=== PATIENT | male | born 1955 | race Caucasian/White ===

== ENCOUNTER 2017-07-24 08:05 | Inpatient (IN) | payer OTHER ==
[~2017-07-24] VITALS: Ht 177.8 cm; Wt 90.5 kg
[2017-07-24] VITALS (7 sets, daily range): BP systolic 91–153; BP diastolic 56–76; PULSE 59–83; RESP 15–23; TEMP 97.8–98.6; O2SAT 95–99
[2017-07-24] MEDS ORDERED: LOVA20TA PO (08:20)
[2017-07-24] MEDS ORDERED: CYCL10TA PO (08:20)
[2017-07-24] MEDS ORDERED: SODIUM CHLORID 0.9% 500 ML INJ 500 ML IV ONE (08:30)
[2017-07-24] MEDS ORDERED: ASPIRIN 81 MG CHEW TAB PO ONE (08:30)
[2017-07-24] MEDS ORDERED: SODIUM CHLORIDE 0.9% FLUSH 10 ML FLUSH IVF PRN (08:30)
--- NOTE | 2017-07-24 08:32 | PD ---
HPI Chief Complaint: Chest Pain Time Seen by Provider: 08:22 Travel History International Travel<30 days: No Contact w/Intl Traveler<30days: No Traveled to known affect area: No History of Present Illness HPI This 62-year-old man who presents to the emergency department complaining of pain in his neck and back shoulder radiating into his chest. He states the he started getting pain in his neck and shoulder WORK TODAY. HE WENT HOME AND THEN HAD TIGHTNESS IN HIS BACK TO RADIATE THROUGH HIS CHEST AND THROUGHOUT HIS ENTIRE TORSO. DENIES A HISTORY OF PREVIOUS SIMILAR SYMPTOMS. HE SEES A CHIROPRACTOR WEEKLY AND STATES THAT HE HAD AN ADJUSTMENT YESTERDAY. NO CHANGE IN HIS ROUTINE. NO NEW HEAVY LIFTING. HE TAKES FLEXERIL AT NIGHT FOR HIS BACK. HE ALSO HAS A HISTORY OF ULCERATIVE COLITIS, DOES NOT TAKE ANY MEDICINES FOR THAT. HE DOES TAKE MEDICINE FOR HYPERLIPIDEMIA. NO HISTORY OF HEART DISEASE. THE TIGHTNESS IN HIS CHEST IS MOSTLY RESOLVED AND HE STILL JUST HAS A LITTLE TIGHTNESS IN HIS BACK. NO AGGRAVATING OR ALLEVIATING FACTORS. NO OTHER ASSOCIATED SYMPTOMS. History Past Medical History Narrative Medical Ulcerative colitis Hyperlipidemia Chronic back problems Family History Narrative Family History No family history of heart disease Social History Tobacco Use: No Allergies-Medications (Allergen,Severity, Reaction): Coded Allergies: No Known Drug Allergies (Verified Allergy, Unknown, 07/24/17) Reported Meds & Prescriptions Reported Meds & Active Scripts Active Reported Lovastatin 20 Mg Tab 20 Mg PO HS Flexeril (Cyclobenzaprine HCl) 10 Mg Tab 10 Mg PO HS Review of Systems Except as stated in HPI: all other systems reviewed are Neg Physical Exam Narrative GENERAL: Well-appearing 62-year-old man, no acute distress. SKIN: Focused skin assessment warm/dry. HEAD: Atraumatic. Normocephalic. EYES: Pupils equal and round. No scleral icterus. No injection or drainage. ENT: No nasal bleeding or discharge. Mucous membranes pink and moist. NECK: Trachea midline. No JVD. CARDIOVASCULAR: Regular rate and rhythm. No murmur appreciated. RESPIRATORY: No accessory muscle use. Clear to auscultation. Breath sounds equal bilaterally. GASTROINTESTINAL: Abdomen soft, non-tender, nondistended. Hepatic and splenic margins not palpable. MUSCULOSKELETAL: No obvious deformities. No clubbing. No cyanosis. No edema. NEUROLOGICAL: Awake and alert. No obvious cranial nerve deficits. Motor grossly within normal limits. Normal speech. PSYCHIATRIC: Appropriate mood and affect; insight and judgment normal. Data Data Last Documented VS Vital Signs Date Time Temp Pulse Resp B/P (MAP) Pulse Ox O2 Delivery O2 Flow Rate FiO2 07/24/17 10:48 73 21 107/65 (79) 99 Room Air 07/24/17 08:18 97.8 Orders Orders Electrocardiogram (07/24/17 08:22) Complete Blood Count With Diff (07/24/17 08:22) Comprehensive Metabolic Panel (07/24/17 08:22) Magnesium (Mg) (07/24/17 08:22) Prothrombin Time / Inr (Pt) (07/24/17 08:22) Act Partial Throm Time (Ptt) (07/24/17 08:22) Troponin I (07/24/17 08:22) Lipase (07/24/17 08:22) Chest, Single Ap (07/24/17 08:22) Ecg Monitoring (07/24/17 08:22) Bilateral Bp Monitoring (07/24/17 08:22) Iv Access Insert/Monitor (07/24/17 08:22) Oximetry (07/24/17 08:22) Oxygen Administration (07/24/17 08:22) Aspirin Chew (Aspirin Chew) (07/24/17 08:30) Sodium Chloride 0.9% Flush (Ns Flush) (07/24/17 08:30) Sodium Chlorid 0.9% 500 Ml Inj (Ns 500 M (07/24/17 08:30) Cta Thor Abd Aorta W Iv C W3d (07/24/17 08:22) Iohexol 350 Inj (Omnipaque 350 Inj) (07/24/17 10:11) Admit Order (Ed Use Only) (07/24/17 ) Labs Laboratory Tests Test 07/24/17 08:37 White Blood Count 6.2 TH/MM3 Red Blood Count 4.80 MIL/MM3 Hemoglobin 14.8 GM/DL Hematocrit 43.6 % Mean Corpuscular Volume 90.8 FL Mean Corpuscular Hemoglobin 30.9 PG Mean Corpuscular Hemoglobin Concent 34.0 % Red Cell Distribution Width 13.9 % Platelet Count 265 TH/MM3 Mean Platelet Volume 7.4 FL Neutrophils (%) (Auto) 60.7 % Lymphocytes (%) (Auto) 26.3 % Monocytes (%) (Auto) 8.6 % Eosinophils (%) (Auto) 3.1 % Basophils (%) (Auto) 1.3 % Neutrophils # (Auto) 3.8 TH/MM3 Lymphocytes # (Auto) 1.6 TH/MM3 Monocytes # (Auto) 0.5 TH/MM3 Eosinophils # (Auto) 0.2 TH/MM3 Basophils # (Auto) 0.1 TH/MM3 CBC Comment DIFF FINAL Differential Comment Prothrombin Time 10.0 SEC Prothromb Time International Ratio 1.0 RATIO Activated Partial Thromboplast Time 24.6 SEC Blood Urea Nitrogen 21 MG/DL Creatinine 1.07 MG/DL Random Glucose 129 MG/DL Total Protein 6.8 GM/DL Albumin 3.8 GM/DL Calcium Level 8.8 MG/DL Magnesium Level 2.2 MG/DL Alkaline Phosphatase 55 U/L Aspartate Amino Transf (AST/SGOT) 16 U/L Alanine Aminotransferase (ALT/SGPT) 24 U/L Total Bilirubin 0.3 MG/DL Sodium Level 136 MEQ/L Potassium Level 4.2 MEQ/L Chloride Level 104 MEQ/L Carbon Dioxide Level 22.9 MEQ/L Anion Gap 9 MEQ/L Estimat Glomerular Filtration Rate 70 ML/MIN Troponin I LESS THAN 0.02 NG/ML Lipase 187 U/L MDM Medical Decision Making Medical Screen Exam Complete: Yes Emergency Medical Condition: Yes Interpretation(s) My review of EKG: Normal sinus rhythm at a rate of 82, normal axis, right bundle branch block, no acute ischemia. CBC unremarkable. CMP generally unremarkable. Troponin negative Lipase normal Lactate pending Coags unremarkable. CTA of the aorta: Dissection of the less likely given artery with intramural hematoma the distal aortic arch, aortic isthmus, and descending thoracic aorta. Chest x-ray negative. Differential Diagnosis Back strain or sprain, dissection, ACS, pneumothorax, other Narrative Course Medical decision-making new 62-year-old man presents emergency department complaining of back chest and torso pain. He looks well. He seems a little bit anxious. I think this is probably musculoskeletal. Accommodation of back and chest pain little bit suspicious for dissection although I think this is unlikely. We'll check CT imaging. Patient will rest for ACS by heart score. Nonischemic EKG, minimally suggestive history, one risk factor. Physician Communication Physician Communication Spoke with Dr. Coleman Jeffers, vascular surgery, will admit patient. Diagnosis Primary Impression: Aortic dissection Admitting Information Admitting Physician Requests: Admit Serge Morelos MD Jul 24, 2017 08:32
--- NOTE | 2017-07-24 09:02 | RADRPT ---
EXAM DATE/TIME: 07/24/2017 08:50 [facility] COMPARISON: No previous studies available for comparison. INDICATIONS : Chest pains left with pressure. MEDICAL HISTORY : None. SURGICAL HISTORY : None. ENCOUNTER: Initial ACUITY: 1 day PAIN SCORE: 7/10 LOCATION: Left chest FINDINGS: A single view of the chest demonstrates the lungs to be symmetrically aerated without evidence of mas s, infiltrate or effusion. The cardiomediastinal contours are unremarkable. Osseous structures are intact. CONCLUSION: No acute disease. Balwinder Cantu MD on July 24, 2017 at 8:59 Board Certified Radiologist. This report was verified electronically.
[2017-07-24 09:15] LABS: AUTOMATED NEUTROPHIL # 3.8 TH/MM3 (1.8-7.7); BASOPHIL # 0.1 TH/MM3 (0-0.2); BASOPHIL % 1.3 % (0.0-2.0); EOSINOPHIL # 0.2 TH/MM3 (0-0.4); EOSINOPHIL % 3.1 % (0.0-4.0); HEMATOCRIT 43.6 % (39.0-51.0); HEMOGLOBIN 14.8 GM/DL (13.0-17.0); LYMPH % 26.3 % (9.0-44.0); LYMPHOCYTE # 1.6 TH/MM3 (1.0-4.8); MEAN CELL VOLUME 90.8 FL (80.0-100.0); MEAN CORPUSCULAR HEMOGLOBIN 30.9 PG (27.0-34.0); MEAN PLATELET VOLUME 7.4 FL (7.0-11.0); MONO % 8.6 % (0.0-8.0); MONOCYTE # 0.5 TH/MM3 (0-0.9); NEUT % 60.7 % (16.0-70.0); PLATELET COUNT 265 TH/MM3 (150-450); RED CELL DISTRIBUTION WIDTH 13.9 % (11.6-17.2); WHITE BLOOD COUNT 6.2 TH/MM3 (4.0-11.0)
[2017-07-24 09:30] LABS: ALBUMIN 3.8 GM/DL (3.4-5.0); AST (GOT) 16 U/L (15-37); BICARBONATE 22.9 MEQ/L (21.0-32.0); BLOOD UREA NITROGEN 21 MG/DL (7-18); CALCIUM 8.8 MG/DL (8.5-10.1); CHLORIDE 104 MEQ/L (98-107); CREATININE 1.07 MG/DL (0.60-1.30); GLOMERULAR FILTRATION RATE 70 ML/MIN (>89); GLUCOSE,RANDOM 129 MG/DL (74-106); LIPASE 187 U/L (73-393); MAGNESIUM 2.2 MG/DL (1.5-2.5); SODIUM (NA) 136 MEQ/L (136-145)
[2017-07-24 09:32] LABS: ALT (GPT) 24 U/L (12-78)
[2017-07-24 09:36] LABS: ALKALINE PHOSPHATASE 55 U/L (45-117); TOTAL BILIRUBIN ADULT 0.3 MG/DL (0.2-1.0); TOTAL PROTEIN 6.8 GM/DL (6.4-8.2); TROPONIN I LESS THAN 0.02 NG/ML (0.02-0.05)
[2017-07-24] MEDS ORDERED: IOHEXOL 350 MG/ML 10 ML VIAL (for RAD DIAG) IVCONTRAST ONE (10:11)
--- NOTE | 2017-07-24 10:35 | RADRPT ---
EXAM DATE/TIME: 07/24/2017 09:47 [facility] COMPARISON: No previous studies available for comparison. INDICATIONS : Chest tightness, right flank pain IV CONTRAST: 94 cc Omnipaque 350 (iohexol) IV RADIATION DOSE: 8.72 CTDIvol (mGy) MEDICAL HISTORY : Ulcerative colitis. SURGICAL HISTORY : None. ENCOUNTER: Initial ACUITY: 1 day PAIN SCALE: 7/10 LOCATION: Bilateral chest Right flank TECHNIQUE: Volumetric scanning was performed using a multi-row detector CT scanner. The data was post processed with a variety of visualization algorithms including full volume maximum intensity projection, multi -planar sliding thin slab reformation, curved planar reformation, and surface rendering techniques. Using automated exposure control and adjustment of the mA and/or kV according to patient size, radiat ion dose was kept as low as reasonably achievable to obtain optimal diagnostic quality images. DICOM format image data is available electronically for review and comparison. FINDINGS: LUNGS: There is no consolidation or pneumothorax. No concerning pulmonary nodule is visualized. No pleural fluid is present. MEDIASTINUM: No abnormally enlarged lymph nodes by CT criteria. No axillary or hilar abnormalities are identified. ABDOMEN: The liver and spleen are free of focal defects. The gallbladder and pancreas demonstrate no abnormali ty. The adrenal glands are normal. The kidneys demonstrate no evidence of solid renal mass or hydrone phrosis. Bilateral renal cysts. Diverticulosis of the colon No free fluid or abdominal masses are deshaun ntified. No para-aortic adenopathy is seen. PELVIS: No evidence of free fluid or pelvic mass. No abnormally enlarged inguinal or retroperitoneal lymph no gamaliel are present. The bladder is unremarkable. THORACIC AORTA: The thoracic aortic root is normal with normal branching of the right subclavian and left carotid art aman. 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 There is intramural venkata marilynn of the distal thoracic aortic arch, aortic isthmus and descending thoracic aorta. This extends i nferiorly to the level of the hiatus. No involvement of the abdominal vasculature.. ABDOMINAL AORTA: The aorta is normal in caliber without aneurysm or dissection. The renal arteries are patent bilater ally. The proximal celiac and superior mesenteric arteries are patent and normal in diameter. PELVIC VESSELS: The internal iliac and external iliac vessels are patent without aneurysm or stenosis. CONCLUSION: 1. 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 This does not involve the abdominal aorta. 2. Diverticulosis of the colon. 3. Bilateral renal cysts. Balwinder Cantu MD on July 24, 2017 at 10:26 Board Certified Radiologist. This report was verified electronically.
--- NOTE | 2017-07-24 11:56 | EKG ---
Date Performed: 07/24/2017 Time Performed: 08:17:46 PTAGE: 62 years EKG: Sinus rhythm RIGHT BUNDLE BRANCH BLOCK ABNORMAL ECG NO PREVIOUS TRACING DOCTOR: Duglas Luna Interpretating Date/Time 07/24/2017 11:54:25
--- NOTE | 2017-07-24 11:59 | HHI.HP ---
History of Present Illness Chief Complaint: Left sided neck/shoulder to torso pain First episode last night with recurrent pain this am History of Present Illness Mr. Park is a 62/M who has a PMH of Ulcerative colitis, hyperlipidemia and chronic lower back pain Pt reported he arrived via EMS due to sudden onset "chest pressure" that worsened this am Pt states his pain started last night (Left sided neck/shoulder to torso) but resolved and reoccurred this am while traveling to work this am (Mirna Gutierrez) Past/Family/Social History Past Medical History Hyperlipidemia Ulcerative Colitis Back pain (lumbar) Social History Pervious hx of smoking (cigarettes)/quit several years ago (Mirna Gutierrez) Home Medications Reported Medications Lovastatin (Lovastatin) 20 Mg Tab, 20 MG PO HS for Cholesterol Management, #30 TAB 0 Refills 07/24/17 Cyclobenzaprine (Flexeril) 10 Mg Tab, 10 MG PO HS for Muscle Spasm, #90 TAB 0 Refills 07/24/17 Coded Allergies: No Known Drug Allergies (Verified Allergy, Unknown, 07/24/17) Review of Systems Constitutional: DENIES: Fever, Chills Respiratory: DENIES: Shortness of breath Cardiovascular: COMPLAINS OF: Chest pain, DENIES: Claudication Gastrointestinal: DENIES: Abdominal pain (Mirna Gutierrez) Physical Exam Vitals/I&O Date Time Temp Pulse Resp B/P (MAP) Pulse Ox O2 Delivery O2 Flow Rate FiO2 07/24/17 10:48 73 21 107/65 (79) 99 Room Air 07/24/17 08:18 97.8 83 17 153/70 (97) 98 Room Air 07/24/17 07/24/17 07/24/17 07:00 15:00 23:00 Intake Total 500 ml Balance 500 ml Neuro: GCS15 CN 2-12 intact Neck: NO JVD distention Heart: + S1,S2 RRR SR on CM Lungs: CTA Abdomen: S/NT Vascular: + palpable R/L Femoral, DP/PT/Radial pulse UE/LE warm w/ motor intact Pt denied claudication/rest pain Extremities: UE 5/5 LE 5/5 (Mirna Gutierrez) Laboratory Tests Test 07/24/17 08:37 White Blood Count 6.2 Red Blood Count 4.80 Hemoglobin 14.8 Hematocrit 43.6 Mean Corpuscular Volume 90.8 Mean Corpuscular Hemoglobin 30.9 Mean Corpuscular Hemoglobin Concent 34.0 Red Cell Distribution Width 13.9 Platelet Count 265 Mean Platelet Volume 7.4 Neutrophils (%) (Auto) 60.7 Lymphocytes (%) (Auto) 26.3 Monocytes (%) (Auto) 8.6 Eosinophils (%) (Auto) 3.1 Basophils (%) (Auto) 1.3 Neutrophils # (Auto) 3.8 Lymphocytes # (Auto) 1.6 Monocytes # (Auto) 0.5 Eosinophils # (Auto) 0.2 Basophils # (Auto) 0.1 CBC Comment DIFF FINAL Differential Comment Prothrombin Time 10.0 Prothromb Time International Ratio 1.0 Activated Partial Thromboplast Time 24.6 Blood Urea Nitrogen 21 Creatinine 1.07 Random Glucose 129 Total Protein 6.8 Albumin 3.8 Calcium Level 8.8 Magnesium Level 2.2 Alkaline Phosphatase 55 Aspartate Amino Transf (AST/SGOT) 16 Alanine Aminotransferase (ALT/SGPT) 24 Total Bilirubin 0.3 Sodium Level 136 Potassium Level 4.2 Chloride Level 104 Carbon Dioxide Level 22.9 Anion Gap 9 Estimat Glomerular Filtration Rate 70 Troponin I LESS THAN 0.02 Lipase 187 Last 48 hours Impressions Chest X-Ray 07/24/17821 Signed Impressions: Service Date/Time: Monday, July 24, 2017 08:50 - CONCLUSION: No acute disease. Balwinder Cantu MD Aorta CTA 07/24/17821 Signed Impressions: Service Date/Time: Monday, July 24, 2017 09:47 - CONCLUSION: 1. Dissection of the left subclavian artery with intramural hematoma of the distal aortic arch, aortic isthmus and descending thoracic aorta. This does not involve the abdominal aorta. 2. Diverticulosis of the colon. 3. Bilateral renal cysts. Balwinder Cantu MD (Mirna Gutierrez) Caprini VTE Risk Assessment Caprini VTE Risk Assessment: No/Low Risk (score <= 1) Caprini Risk Assessment Model Point Value = 1 Point Value = 2 Point Value = 3 Point Value = 5 Age 41-60 Minor surgery BMI > 25 kg/m2 Swollen legs Varicose veins or History of unexplained or recurrent spontaneous Oral contraceptives or hormone replacement Sepsis (< 1 month) Serious lung disease, including pneumonia (< 1 month) Abnormal pulmonary function Acute myocardial infarction Congestive heart failure (< 1 month) History of inflammatory bowel disease Medical patient at bed rest Age 61-74 Arthroscopic surgery Major open surgery (> 45 min) Laparoscopic surgery (> 45 min) Malignancy Confined to bed (> 72 hours) Immobilizing plaster cast Central venous access Age >= 75 History of VTE Family history of VTE Factor V Leiden Prothrombin [id number] Lupus anticoagulant Anticardiolipin antibodies Elevated serum homocysteine Heparin-induced thrombocytopenia Other congenital or acquired thrombophilia Stroke (< 1 month) Elective arthroplasty Hip, pelvis, or leg fracture Acute spinal cord injury (< 1 month) Prophylaxis Regimen Total Risk Factor Score Risk Level Prophylaxis Regimen 0-1 Low Early ambulation 2 Moderate Order ONE of the following: *Sequential Compression Device (SCD) *Heparin 5000 units SQ BID 3-4 Higher Order ONE of the following medications: *Heparin 5000 units SQ TID *Enoxaparin/Lovenox 40 mg SQ daily (WT < 150 kg, CrCl > 30 mL/min) *Enoxaparin/Lovenox 30 mg SQ daily (WT < 150 kg, CrCl > 10-29 mL/min) *Enoxaparin/Lovenox 30 mg SQ BID (WT < 150 kg, CrCl > 30 mL/min) AND/OR *Sequential Compression Device (SCD) 5 or more Highest Order ONE of the following medications: *Heparin 5000 units SQ TID (Preferred with Epidurals) *Enoxaparin/Lovenox 40 mg SQ daily (WT < 150 kg, CrCl > 30 mL/min) *Enoxaparin/Lovenox 30 mg SQ daily (WT < 150 kg, CrCl > 10-29 mL/min) *Enoxaparin/Lovenox 30 mg SQ BID (WT < 150 kg, CrCl > 30 mL/min) AND *Sequential Compression Device (SCD) (Mirna Gutierrez) Assessment and Plan Assessment: (1) Aortic dissection Plan Mr. Park is a 62/M patient with newly discovered aortic dissection (Type III/B ) Per exam pt w/o malperfusion Plan Reviewed CTA/discussed results w/ pt Admit to [facility] in CVICU Labetalol drip ordered with a systolic goal of 110 Mirna Gutierrez [facility] [phone] (Mirna Gutierrez) Plan Acute type B (or IIIa) dissection without malperfusion or rupture. Pt pain significantly improved. Needs adm to CVICU, labetolol gtt for goal SBP <110 Repeat CTA in 48h. Discussed with patient. Hari Jeffers MD FACS [facility]PVI entrance guard [facility] at [facility] [phone] (Hari Jeffers MD) Mirna Gutierrez Jul 24, 2017 11:59 Hari Jeffers MD Jul 24, 2017 12:30
--- NOTE | 2017-07-24 12:02 | PD.CONS ---
[facility] Service Critical Care Medicine Consult Requested By Dr. Jeffers Reason for Consult Acute type B dissection Primary Care Physician Unknown History of Present Illness Patient is a 61-year-old male with past medical history significant for ulcerative colitis, chronic back pain, dyslipidemia, prostate cancer 10 years ago, who presented with neck and back pain radiating into his chest. He also complained about anterior abdominal pain predominantly epigastric. Never had similar complaints in the past. He sees a chiropractor weekly and had some adjustment of yesterday. He apparently quit smoking about [address] angiogram of the thoracic and abdominal aorta revealed [place] Tpe B Dissection (dissection of the left subclavian artery with intramural hematoma of the distal aortic arch, aortic isthmus and descending thoracic aorta). Initial blood pressure was 150/70 and without any blood pressure medication BP came down to 107/65 in the ED I evaluated the patient in the emergency department. He appears mildly anxious but pain is better controlled. I have discussed with Dr. Jeffers. Medical management with tight blood pressure control systolic blood pressure less than 120 diastolic less than 80, keep heart rate less than 60. Repeat CT angiogram in 2-3 days Review of Systems ROS Limitations: Other (as per HPI) Past Family Social History Allergies: Coded Allergies: No Known Drug Allergies (Verified Allergy, Unknown, 07/24/17) Past Medical History Ulcerative colitis Hyperlipidemia Chronic back problems Prostate cancer status post radiation therapy 10 years ago Past Surgical History Multiple colonoscopies Hydrocele repair Reported Medications Lovastatin 20 Mg Tab 20 Mg PO HS Flexeril (Cyclobenzaprine HCl) 10 Mg Tab 10 Mg PO HS Active Ordered Medications Reviewed Family History Father of apparent heart failure Mother in an accident at a young age Social History Quit smoking 4 years ago Drinks about 1 cocktail a day Physical Exam Vital Signs Vital Signs Date Time Temp Pulse Resp B/P (MAP) Pulse Ox O2 Delivery O2 Flow Rate FiO2 07/24/17 10:48 73 21 107/65 (79) 99 Room Air 07/24/17 08:18 97.8 83 17 153/70 (97) 98 Room Air Physical Exam GENERAL: 62-year-old male who is well-developed, slightly anxious SKIN: Warm and dry HEAD: Atraumatic. Normocephalic. EYES: Pupils equal and round. No scleral icterus. No injection or drainage. ENT: No nasal bleeding or discharge. NECK: Trachea midline. No JVD. No carotid bruit CARDIOVASCULAR: Regular rate and rhythm. No murmur appreciated. RESPIRATORY: No accessory muscle use. Clear to auscultation. Breath sounds equal bilaterally. GASTROINTESTINAL: Abdomen soft, non-tender, nondistended. No pulsatile masses seen MUSCULOSKELETAL: No obvious deformities. No clubbing. No cyanosis. Bilateral DP/PT pulses palpable NEUROLOGICAL: Awake and alert. No obvious cranial nerve deficits. Motor grossly within normal limits. Normal speech. Laboratory Laboratory Tests Test 07/24/17 08:37 07/24/17 11:30 White Blood Count 6.2 Red Blood Count 4.80 Hemoglobin 14.8 Hematocrit 43.6 Mean Corpuscular Volume 90.8 Mean Corpuscular Hemoglobin 30.9 Mean Corpuscular Hemoglobin Concent 34.0 Red Cell Distribution Width 13.9 Platelet Count 265 Mean Platelet Volume 7.4 Neutrophils (%) (Auto) 60.7 Lymphocytes (%) (Auto) 26.3 Monocytes (%) (Auto) 8.6 Eosinophils (%) (Auto) 3.1 Basophils (%) (Auto) 1.3 Neutrophils # (Auto) 3.8 Lymphocytes # (Auto) 1.6 Monocytes # (Auto) 0.5 Eosinophils # (Auto) 0.2 Basophils # (Auto) 0.1 CBC Comment DIFF FINAL Differential Comment Prothrombin Time 10.0 Prothromb Time International Ratio 1.0 Activated Partial Thromboplast Time 24.6 Blood Urea Nitrogen 21 Creatinine 1.07 Random Glucose 129 Total Protein 6.8 Albumin 3.8 Calcium Level 8.8 Magnesium Level 2.2 Alkaline Phosphatase 55 Aspartate Amino Transf (AST/SGOT) 16 Alanine Aminotransferase (ALT/SGPT) 24 Total Bilirubin 0.3 Sodium Level 136 Potassium Level 4.2 Chloride Level 104 Carbon Dioxide Level 22.9 Anion Gap 9 Estimat Glomerular Filtration Rate 70 Troponin I LESS THAN 0.02 Lipase 187 Result Diagram: 07/24/17 0837 07/24/17 0837 Imaging CTA of the aorta showed dissection of the left subclavian artery with intramural hematoma of the distal aortic arch, aortic isthmus and descending thoracic aorta. Diverticulosis of the colon. Assessment and Plan Assessment and Plan ASSESSMENT Acute type B aortic dissection Hypertension Dyslipidemia Ulcerative colitis History of prostate cancer Past tobacco use PLAN: NEURO: - Pain control with IV morphine when necessary - Continue home dose of Flexeril RESP: - Nasal cannula oxygen - DuoNeb every 6 hours when necessary CV: - Medical management with tight blood pressure control systolic blood pressure less than 120 diastolic less than 80, keep heart rate less than 60. - Repeat CT angiogram in 2-3 days - Consider labetalol and fusion if blood pressure control not in target - Start Coreg 6.25 mg twice a day - Continue lovastatin - Normal saline IV fluids 84 ml per hour GI: - Heart healthy diet. : - Monitor renal function closely. ID: - No indication for antibiotics HEME: - Monitor CBC, CMP - ENDO: - Replace electrolytes per protocol PROPH: - Bilateral lower extremity SCDs. Avoid chemical prophylaxis. LINES: - Utilize peripheral IVs, central line if needed CC time 35 min Code Status Full Shruthi Mason MD Jul 24, 2017 12:01
[2017-07-24] MEDS ORDERED: LABETALOL HCL 100 MG/20 ML VIAL IV PUSH PRN (12:15)
[2017-07-24] MEDS ORDERED: LACTULOSE SYRUP 20 GM/30 ML CUP PO PRN (12:45)
[2017-07-24] MEDS ORDERED: SENNOSIDES 8.6 MG TAB PO PRN (12:45)
[2017-07-24] MEDS ORDERED: MAGNESIUM HYDROXIDE SUSP 30 ML CUP PO PRN (12:45)
[2017-07-24] MEDS ORDERED: BISACODYL 10 MG SUPP RECTAL PRN (12:45)
[2017-07-24] MEDS: CARVEDILOL 6.25 MG TAB PO SCH ×2 (12:57→21:48)
[2017-07-24] MEDS: LABETALOL HCL 100 MG/20 ML VIAL IV PUSH PRN ×11 (12:58→15:07)
[2017-07-24] MEDS: D5-1/2 NS + KCL 20 MEQ INJ 1,000 ML IV SCH (13:01)
[2017-07-24] MEDS: THIAMINE HCL 100 MG TAB PO SCH (13:09)
[2017-07-24] MEDS: ENOXAPARIN SODIUM 40 MG/0.4 ML SYRINGE SQ SCH (13:09)
[2017-07-24] MEDS: MORPHINE SULFATE 2 MG/ML INJ IV PRN ×2 (14:55→18:51)
[2017-07-24] MEDS ORDERED: NS IV PRN ×2 (15:00)
[2017-07-24] MEDS ORDERED: LABETALOL IV PRN ×2 (15:00)
[2017-07-24] MEDS: LABETALOL INJ 1,000 MG in SODIUM CHLORID 0.9% 500 ML INJ 300 ML IV PRN (18:00)
[2017-07-24] MEDS: DOCUSATE SODIUM 50 MG/SENNA 8.6 MG TAB PO SCH (21:00)
[2017-07-24] MEDS: CYCLOBENZAPRINE HCL 10 MG TAB PO SCH (21:48)
[2017-07-24] MEDS: ATORVASTATIN 40 MG TAB PO SCH (21:48)
[2017-07-24] MEDS: FAMOTIDINE 20 MG TAB PO SCH (21:48)
[2017-07-24] MEDS: PRAVASTATIN SOD 20 MG TAB PO SCH (21:48)
[2017-07-24] MEDS ORDERED: ONDANSETRON HCL 4 MG/2 ML VIAL ONE (22:49)
[2017-07-24] MEDS ORDERED: ONDANSETRON HCL 4 MG/2 ML VIAL IV PUSH PRN (23:00)
[2017-07-25] VITALS (7 sets, daily range): BP systolic 102–118; BP diastolic 56–69; PULSE 60–76; RESP 15–18; TEMP 98–99.2; O2SAT 92–96
[2017-07-25] MEDS: LABETALOL INJ 1,000 MG in SODIUM CHLORID 0.9% 500 ML INJ 300 ML IV PRN (00:33)
[2017-07-25] MEDS: D5-1/2 NS + KCL 20 MEQ INJ 1,000 ML IV SCH ×3 (00:33→23:45)
[2017-07-25 04:07] LABS: HEMATOCRIT 34.3 % (39.0-51.0); HEMOGLOBIN 12.1 GM/DL (13.0-17.0); MEAN CELL VOLUME 89.4 FL (80.0-100.0); MEAN CORPUSCULAR HEMOGLOBIN 31.5 PG (27.0-34.0); MEAN CORPUSCULAR HGB CONC 35.2 % (32.0-36.0); MEAN PLATELET VOLUME 7.7 FL (7.0-11.0); PLATELET COUNT 214 TH/MM3 (150-450); RED BLOOD COUNT 3.84 MIL/MM3 (4.50-5.90); RED CELL DISTRIBUTION WIDTH 14.2 % (11.6-17.2); WHITE BLOOD COUNT 8.7 TH/MM3 (4.0-11.0)
[2017-07-25 04:30] LABS: BICARBONATE 23.6 MEQ/L (21.0-32.0); CALCIUM 7.8 MG/DL (8.5-10.1); CREATININE 1.17 MG/DL (0.60-1.30)
--- NOTE | 2017-07-25 07:19 | PD.VS.PN ---
Subjective Subjective/Hospital Course Pt adm with aTBAD. Placed on labetolol gtt with excellent control of BP Pt feels tired but CP down to 1 of 10. No more back pain like prompted admission. Objective Vitals/I&O Date Time Temp Pulse Resp B/P (MAP) Pulse Ox O2 Delivery O2 Flow Rate FiO2 07/25/17 03:13 64 07/25/17 03:13 98.0 63 15 102/56 (71) 95 07/24/17 23:00 98.1 60 15 91/56 (68) 95 07/24/17 23:00 62 07/24/17 19:21 95 Room Air 07/24/17 19:21 98.6 63 16 101/66 (78) 95 07/24/17 19:00 61 07/24/17 15:07 18 07/24/17 15:00 64 07/24/17 15:00 98.2 59 18 136/76 (96) 99 07/24/17 14:00 99 Room Air 07/24/17 13:27 07/24/17 12:26 71 23 127/69 (88) 99 Room Air 07/24/17 10:48 73 21 107/65 (79) 99 Room Air 07/24/17 08:18 97.8 83 17 153/70 (97) 98 Room Air 07/25/17 07/25/17 07/25/17 07:00 15:00 23:00 Output Total 250 ml Balance -250 ml Physical Exam no distress no abdominal tenderness palpable pedal pulses Laboratory Laboratory Tests Test 07/24/17 08:37 07/24/17 11:30 07/25/17 03:31 White Blood Count 6.2 8.7 Red Blood Count 4.80 3.84 Hemoglobin 14.8 12.1 Hematocrit 43.6 34.3 Mean Corpuscular Volume 90.8 89.4 Mean Corpuscular Hemoglobin 30.9 31.5 Mean Corpuscular Hemoglobin Concent 34.0 35.2 Red Cell Distribution Width 13.9 14.2 Platelet Count 265 214 Mean Platelet Volume 7.4 7.7 Neutrophils (%) (Auto) 60.7 Lymphocytes (%) (Auto) 26.3 Monocytes (%) (Auto) 8.6 Eosinophils (%) (Auto) 3.1 Basophils (%) (Auto) 1.3 Neutrophils # (Auto) 3.8 Lymphocytes # (Auto) 1.6 Monocytes # (Auto) 0.5 Eosinophils # (Auto) 0.2 Basophils # (Auto) 0.1 CBC Comment DIFF FINAL Differential Comment Prothrombin Time 10.0 Prothromb Time International Ratio 1.0 Activated Partial Thromboplast Time 24.6 Blood Urea Nitrogen 21 22 Creatinine 1.07 1.17 Random Glucose 129 135 Total Protein 6.8 Albumin 3.8 Calcium Level 8.8 7.8 Magnesium Level 2.2 Alkaline Phosphatase 55 Aspartate Amino Transf (AST/SGOT) 16 Alanine Aminotransferase (ALT/SGPT) 24 Total Bilirubin 0.3 Sodium Level 136 141 Potassium Level 4.2 4.3 Chloride Level 104 111 Carbon Dioxide Level 22.9 23.6 Anion Gap 9 6 Estimat Glomerular Filtration Rate 70 63 Troponin I LESS THAN 0.02 Lipase 187 Lactic Acid Level 2.2 Imaging Last 48 hours Impressions Chest X-Ray 07/24/17821 Signed Impressions: Service Date/Time: Monday, July 24, 2017 08:50 - CONCLUSION: No acute disease. Balwinder Cantu MD Aorta CTA 07/24/17821 Signed Impressions: Service Date/Time: Monday, July 24, 2017 09:47 - CONCLUSION: 1. Dissection of the left subclavian artery with intramural hematoma of the distal aortic arch, aortic isthmus and descending thoracic aorta. This does not involve the abdominal aorta. 2. Diverticulosis of the colon. 3. Bilateral renal cysts. Balwinder Cantu MD Assessment and Plan Assessment: (1) Aortic dissection Plan Acute type B (or IIIa) dissection without malperfusion or rupture. 1. OOB TC 2. Cardiac diet 3. Continue labetolol gtt for goal SBP <110 4. Repeat CTA tomorrow; if stable will transition to po meds and transfer from CVICU. Hari Jeffers MD FACS VI juke box mechanic [facility] - Heart and Vascular Surgery at [facility] [phone] Hari Jeffers MD Jul 25, 2017 07:19
[2017-07-25] MEDS: DOCUSATE SODIUM 50 MG/SENNA 8.6 MG TAB PO SCH ×2 (09:26→20:20)
[2017-07-25] MEDS: THIAMINE HCL 100 MG TAB PO SCH (09:26)
[2017-07-25] MEDS: ASPIRIN 81 MG CHEW TAB PO SCH (09:26)
[2017-07-25] MEDS: FAMOTIDINE 20 MG TAB PO SCH ×2 (09:26→20:21)
--- NOTE | 2017-07-25 09:26 | HHI.CCPN ---
Subjective Remarks/Hospital Course Patient is a 61-year-old male with past medical history significant for ulcerative colitis, chronic back pain, dyslipidemia, prostate cancer 10 years ago, who presented with neck and back pain radiating into his chest. He also complained about anterior abdominal pain predominantly epigastric. Never had similar complaints in the past. He sees a chiropractor weekly and had some adjustment of yesterday. He apparently quit smoking about [address] angiogram of the thoracic and abdominal aorta revealed Arnie Tpe B Dissection (dissection of the left subclavian artery with intramural hematoma of the distal aortic arch, aortic isthmus and descending thoracic aorta). Initial blood pressure was 150/70 and without any blood pressure medication BP came down to 107/65 in the ED I evaluated the patient in the emergency department. He appears mildly anxious but pain is better controlled. I have discussed with Dr. Jeffers. Medical management with tight blood pressure control systolic blood pressure less than 120 diastolic less than 80, keep heart rate less than 60. Repeat CT angiogram in 2-3 days SUBJ 07/25: Lying in bed comfortably no acute distress. Bilateral pedal pulses are palpable. Denies any worsening of chest or abdominal pain. Remains on labetalol infusion Objective Vital Signs Date Time Temp Pulse Resp B/P (MAP) Pulse Ox O2 Delivery O2 Flow Rate FiO2 07/25/17 07:00 98.2 60 18 102/57 (72) 96 07/25/17 07:00 Nasal Cannula 2.00 Intake and Output 07/25/17 07/25/17 07/26/17 08:00 16:00 00:00 Output Total 250 ml Balance -250 ml Result Diagram: 07/25/17 0331 07/25/17 0331 Imaging CTA of the aorta showed dissection of the left subclavian artery with intramural hematoma of the distal aortic arch, aortic isthmus and descending thoracic aorta. Diverticulosis of the colon. Objective Remarks GENERAL: 62-year-old male who is well-developed, no distress SKIN: Warm and dry HEAD: Atraumatic. Normocephalic. EYES: Pupils equal and round. No scleral icterus. No injection or drainage. ENT: No nasal bleeding or discharge. NECK: Trachea midline. No JVD. No carotid bruit CARDIOVASCULAR: Regular rate and rhythm. No murmur appreciated. RESPIRATORY: No accessory muscle use. Clear to auscultation. Breath sounds equal bilaterally. GASTROINTESTINAL: Abdomen soft, non-tender, nondistended. No pulsatile masses seen MUSCULOSKELETAL: No obvious deformities. No clubbing. No cyanosis. Bilateral DP/PT pulses palpable NEUROLOGICAL: Awake and alert. No obvious cranial nerve deficits. Motor grossly within normal limits. Normal speech. A/P Assessment and Plan ASSESSMENT Acute type B aortic dissection Hypertension Dyslipidemia Ulcerative colitis History of prostate cancer Past tobacco use PLAN: NEURO: - Pain control with IV morphine when necessary - Continue home dose of Flexeril RESP: - Nasal cannula oxygen - DuoNeb every 6 hours when necessary CV: - Medical management with tight blood pressure control systolic blood pressure less than 110 diastolic less than 80, keep heart rate less than 60. - Repeat CT angiogram in 2-3 days - Labetalol infusion and IV PRN - Coreg 6.25 mg twice a day - Continue lovastatin - Normal saline IV fluids 84 ml per hour - Repeat CTA in am per Dr. Jeffers GI: - Heart healthy diet. : - Monitor renal function closely. ID: - No indication for antibiotics HEME: - Monitor CBC, CMP - ENDO: - Replace electrolytes per protocol PROPH: - Bilateral lower extremity SCDs. Avoid chemical prophylaxis until cleared by Dr. Jeffers LINES: - Utilize peripheral IVs, central line if needed Level 3 follow up Shruthi Mason MD Jul 25, 2017 09:26
[2017-07-25] MEDS: CARVEDILOL 6.25 MG TAB PO SCH ×2 (09:27→20:21)
[2017-07-25] MEDS: ENOXAPARIN SODIUM 40 MG/0.4 ML SYRINGE SQ SCH (13:17)
[2017-07-25] MEDS: CYCLOBENZAPRINE HCL 10 MG TAB PO SCH (20:21)
[2017-07-25] MEDS: PRAVASTATIN SOD 20 MG TAB PO SCH (20:21)
[2017-07-25] MEDS: ATORVASTATIN 40 MG TAB PO SCH (20:21)
[2017-07-26] VITALS (9 sets, daily range): BP systolic 101–155; BP diastolic 60–98; PULSE 62–91; RESP 16–20; TEMP 97.5–99.2; O2SAT 93–98
[2017-07-26] MEDS: LABETALOL INJ 1,000 MG in SODIUM CHLORID 0.9% 500 ML INJ 300 ML IV PRN ×2 (00:10→09:25)
[2017-07-26 04:10] LABS: HEMATOCRIT 35.2 % (39.0-51.0); HEMOGLOBIN 11.7 GM/DL (13.0-17.0); MEAN CELL VOLUME 91.3 FL (80.0-100.0); MEAN CORPUSCULAR HEMOGLOBIN 30.4 PG (27.0-34.0); MEAN CORPUSCULAR HGB CONC 33.2 % (32.0-36.0); MEAN PLATELET VOLUME 7.4 FL (7.0-11.0); PLATELET COUNT 209 TH/MM3 (150-450); RED BLOOD COUNT 3.85 MIL/MM3 (4.50-5.90); WHITE BLOOD COUNT 9.4 TH/MM3 (4.0-11.0)
[2017-07-26 04:35] LABS: BICARBONATE 19.8 MEQ/L (21.0-32.0); CALCIUM 7.9 MG/DL (8.5-10.1); CREATININE 0.87 MG/DL (0.60-1.30)
[2017-07-26] MEDS ORDERED: SODIUM CHLORID 0.9% 500 ML INJ 500 ML IV ONE (05:30)
[2017-07-26] MEDS ORDERED: SODIUM CHLOR 0.9% 1000 ML INJ 1,000 ML IV SCH (06:00)
--- NOTE | 2017-07-26 07:53 | PD.VS.PN ---
Subjective Subjective/Hospital Course Pt adm with aTBAD. feels "tired" this morning but no CP/BP Objective Vitals/I&O Date Time Temp Pulse Resp B/P (MAP) Pulse Ox O2 Delivery O2 Flow Rate FiO2 07/26/17 07:26 93 Nasal Cannula 3.00 07/26/17 07:00 64 07/26/17 07:00 98.1 64 16 101/64 (76) 07/26/17 07:00 94 Nasal Cannula 2.00 07/26/17 03:00 97.5 65 18 114/60 (78) 96 07/26/17 03:00 70 07/25/17 23:00 70 07/25/17 23:00 98.3 73 16 117/68 (84) 96 07/25/17 21:00 95 Nasal Cannula 2.00 07/25/17 20:51 92 Nasal Cannula 2.00 07/25/17 19:00 91 Room Air 07/25/17 19:00 70 07/25/17 19:00 99.2 73 18 103/66 (78) 94 07/25/17 15:00 72 07/25/17 15:00 98.1 66 16 118/69 (85) 94 07/25/17 11:00 98.1 69 16 106/57 (73) 93 07/25/17 11:00 60 07/26/17 07/26/17 07/26/17 07:00 15:00 23:00 Intake Total 2329 ml Output Total 800 ml Balance 1529 ml Physical Exam resting comfortably palpable pedal pulses, no abdominal tenderness Laboratory Laboratory Tests Test 07/26/17 03:57 White Blood Count 9.4 Red Blood Count 3.85 Hemoglobin 11.7 Hematocrit 35.2 Mean Corpuscular Volume 91.3 Mean Corpuscular Hemoglobin 30.4 Mean Corpuscular Hemoglobin Concent 33.2 Red Cell Distribution Width 14.0 Platelet Count 209 Mean Platelet Volume 7.4 Blood Urea Nitrogen 12 Creatinine 0.87 Random Glucose 141 Calcium Level 7.9 Sodium Level 141 Potassium Level 4.2 Chloride Level 113 Carbon Dioxide Level 19.8 Anion Gap 8 Estimat Glomerular Filtration Rate 89 Imaging Last 48 hours Impressions Chest X-Ray 07/24/17 0822 Signed Impressions: Service Date/Time: Monday, July 24, 2017 08:50 - CONCLUSION: No acute disease. Balwinder Cantu MD Aorta CTA 07/24/17 0822 Signed Impressions: Service Date/Time: Monday, July 24, 2017 09:47 - CONCLUSION: 1. Dissection of the left subclavian artery with intramural hematoma of the distal aortic arch, aortic isthmus and descending thoracic aorta. This does not involve the abdominal aorta. 2. Diverticulosis of the colon. 3. Bilateral renal cysts. Balwinder Cantu MD Assessment and Plan Assessment: (1) Aortic dissection Plan Acute type B (or IIIa) dissection without malperfusion or rupture. 1. repeat CTA today 2. Continue BP meds 3. If CT stable, transition to po meds, transfer from CVICU and transition to medical service Hari Jeffers MD [facility] RPVI production estimator [facility] - Heart and Vascular Surgery at [facility] [phone] Hari Jeffers MD Jul 26, 2017 07:53
[2017-07-26] MEDS ORDERED: IOHEXOL 350 MG/ML 10 ML VIAL (for RAD DIAG) IVCONTRAST ONE (08:54)
[2017-07-26] MEDS: CARVEDILOL 6.25 MG TAB PO SCH ×2 (09:00→21:35)
[2017-07-26] MEDS: THIAMINE HCL 100 MG TAB PO SCH (09:00)
[2017-07-26] MEDS: DOCUSATE SODIUM 50 MG/SENNA 8.6 MG TAB PO SCH ×2 (09:00→21:36)
[2017-07-26] MEDS: FAMOTIDINE 20 MG TAB PO SCH ×2 (09:00→21:36)
--- NOTE | 2017-07-26 09:36 | RADRPT ---
EXAM DATE/TIME: 07/26/2017 08:31 [place] COMPARISON: CTA THORACIC ABDOMINAL AORTA W 3D RECON, July 24, 2017, 9:47. INDICATIONS : Follow up dissection. IV CONTRAST: 87 cc Omnipaque 350 (iohexol) IV RADIATION DOSE: 17.08 CTDIvol (mGy) MEDICAL HISTORY : Carcinoma, pancreas. SURGICAL HISTORY : None. ENCOUNTER: Initial ACUITY: 1 day PAIN SCALE: 0/10 LOCATION: chest/abdomen TECHNIQUE: Volumetric scanning was performed using a multi-row detector CT scanner. The data was post processed with a variety of visualization algorithms including full volume maximum intensity projection, multi -planar sliding thin slab reformation, curved planar reformation, and surface rendering techniques. Using automated exposure control and adjustment of the mA and/or kV according to patient size, radiat ion dose was kept as low as reasonably achievable to obtain optimal diagnostic quality images. DICOM format image data is available electronically for review and comparison. FINDINGS: Thoracic/abdominal aorta: Again seen is a type B aortic dissection. The dissection begins at the origin of the left subclavian artery and extends into the left subclavian artery itself. The dissection extends into the proximal a xillary artery and within the visualized portions of the brachial artery. The dissection flap is fene strated within its proximal aspect of the left subclavian artery with equal opacification of the true and false lumens. There is thrombosis of the false lumen within the left subclavian artery distal to the origin the left vertebral artery. This thrombosed lumen does generate compression of the true farrah men which is very small in caliber within the peripheral left subclavian artery and left axillary art aman. The left vertebral artery is without dissection flap and well-opacified with contrast. The remai rossi arch vessels are not involved with the dissection nor is the ascending aorta. The ascending aort a is aneurysmal within the tubular portion measuring 4.5 cm. A dissection flap extends inferiorly juana n to the level of the diaphragmatic hiatus. The false lumen is thrombosed throughout its entirety. Th e true lumen although minimally narrowed remains patent and well-opacified with contrast bolus. The d issection is terminated proximal to the celiac origin. The abdominal aorta is normal in caliber and c ourse. No aneurysm or dissection. The celiac, SMA, TONYA, and renal arteries are patent. In-Flow vessel s are patent. Heart and mediastinum: The heart is at the upper limits of normal in terms of size. A small amount of fluid is seen within t he superior epicardial recess. No significant pericardial effusion. Pulmonary arteries are normal in caliber. No mass or adenopathy. No mediastinal hematoma. Lung parenchyma: Small bilateral pleural effusions with associated passive atelectasis. No pneumothorax. Other structures: Small cortical renal cysts bilaterally. Scattered colonic diverticuli without acute inflammation. CONCLUSION: 1. Stable [place] type B aortic dissection. The dissection extends through the left subclavian arter y into the axillary artery. It does generate luminal compromise of the left subclavian artery distal to the vertebral artery origin and into the axillary artery secondary to thrombosis of the false del rio kishan and compression of the true channel. The component within the descending aorta extends to the hector phragmatic hiatus with complete thrombosis of the false channel. No significant luminal compromise to the true channel. 2. 4.5 cm fusiform dilatation of the mid tubular portion of the ascending aorta. 3. Small bilateral pleural effusions with associated atelectasis. Maxx Lopez Jr., MD on July 26, 2017 at 9:07 Board Certified Radiologist. This report was verified electronically.
[2017-07-26] MEDS: ASPIRIN 81 MG CHEW TAB PO SCH (10:23)
[2017-07-26] MEDS: ENOXAPARIN SODIUM 40 MG/0.4 ML SYRINGE SQ SCH (13:59)
[2017-07-26] MEDS: LABETALOL HCL 300 MG TAB PO SCH ×2 (17:16→23:30)
--- NOTE | 2017-07-26 17:17 | HHI.CCPN ---
Subjective Remarks/Hospital Course Patient is a 61-year-old male with past medical history significant for ulcerative colitis, chronic back pain, dyslipidemia, prostate cancer 10 years ago, who presented with neck and back pain radiating into his chest. He also complained about anterior abdominal pain predominantly epigastric. Never had similar complaints in the past. He sees a chiropractor weekly and had some adjustment of yesterday. He apparently quit smoking about [address] angiogram of the thoracic and abdominal aorta revealed [place] Tpe B Dissection (dissection of the left subclavian artery with intramural hematoma of the distal aortic arch, aortic isthmus and descending thoracic aorta). Initial blood pressure was 150/70 and without any blood pressure medication BP came down to 107/65 in the ED I evaluated the patient in the emergency department. He appears mildly anxious but pain is better controlled. I have discussed with Dr. Jeffers. Medical management with tight blood pressure control systolic blood pressure less than 120 diastolic less than 80, keep heart rate less than 60. Repeat CT angiogram in 2-3 days SUBJ 07/25: Lying in bed comfortably no acute distress. Bilateral pedal pulses are palpable. Denies any worsening of chest or abdominal pain. Remains on labetalol infusion 07/26: on minimal labetalol drip. repeat CT aortogram without evidence of progression of type B dissection. patient denies complaints. Objective Vital Signs Date Time Temp Pulse Resp B/P (MAP) Pulse Ox O2 Delivery O2 Flow Rate FiO2 07/26/17 15:00 98.3 69 20 107/68 (81) 98 07/26/17 07:26 Nasal Cannula 3.00 Intake and Output 07/26/17 07/26/17 07/27/17 08:00 16:00 00:00 Intake Total 2329 ml 114 ml Output Total 800 ml Balance 1529 ml 114 ml Result Diagram: 07/26/17 0357 07/26/17 0357 Imaging CTA of the aorta showed dissection of the left subclavian artery with intramural hematoma of the distal aortic arch, aortic isthmus and descending thoracic aorta. Diverticulosis of the colon. Objective Remarks GENERAL: 62-year-old male who is well-developed, no distress SKIN: Warm and dry HEAD: Atraumatic. Normocephalic. EYES: Pupils equal and round. No scleral icterus. No injection or drainage. ENT: No nasal bleeding or discharge. NECK: Trachea midline. No JVD. CARDIOVASCULAR: Regular rate and rhythm. RESPIRATORY: No accessory muscle use. equal chest rise. room air. GASTROINTESTINAL: Abdomen soft, non-tender, nondistended. No pulsatile masses seen MUSCULOSKELETAL: No obvious deformities. No clubbing. No cyanosis. Bilateral DP/PT pulses palpable NEUROLOGICAL: Awake and alert. No obvious cranial nerve deficits. Motor grossly within normal limits. Normal speech. A/P Assessment and Plan ASSESSMENT Acute type B aortic dissection Hypertensive emergency- improving. Dyslipidemia Ulcerative colitis History of prostate cancer Past tobacco use PLAN: NEURO: - Pain control with IV morphine when necessary - Continue home dose of Flexeril RESP: - Nasal cannula oxygen - DuoNeb every 6 hours when necessary CV: - liberalize SBP goals to < 130. - start labetalol 300mg po q6h - continue coreg 12.5mg q12h - may need to had po hydralazine. - wean off iv labetalol. - repeat CT aortogram 07/26: stable. - Continue lovastatin - d/c mivf. GI: - Heart healthy diet. : - Monitor renal function closely. no indication for Anderson catheter ID: - No indication for antibiotics HEME: - Monitor CBC, CMP - ENDO: - Replace electrolytes per protocol PROPH: - Bilateral lower extremity SCDs. Avoid chemical prophylaxis until cleared by Dr. Jeffers LINES: - Utilize peripheral IVs. Dispo: once off labetalol drip can transition to stepdown unit. will consult hospitalist service to continue following. Collins Russell MD Jul 26, 2017 17:17
[2017-07-26] MEDS: ATORVASTATIN 40 MG TAB PO SCH (21:00)
[2017-07-26] MEDS: CYCLOBENZAPRINE HCL 10 MG TAB PO SCH (21:35)
[2017-07-26] MEDS: PRAVASTATIN SOD 20 MG TAB PO SCH (21:35)
[2017-07-26] MEDS ORDERED: ACETAMINOPHEN 325 MG TAB PO PRN (22:00)
[2017-07-27] VITALS (23 sets, daily range): BP systolic 126–166; BP diastolic 70–94; PULSE 67–96; RESP 12–22; TEMP 97.4–100.2; O2SAT 92–96
[2017-07-27] MEDS: LABETALOL HCL 300 MG TAB PO SCH ×4 (04:23→23:20)
[2017-07-27] MEDS ORDERED: METOPROLOL TARTRATE 5 MG/5 ML VIAL IV PUSH PRN (05:30)
[2017-07-27] MEDS: THIAMINE HCL 100 MG TAB PO SCH (07:28)
[2017-07-27] MEDS: CARVEDILOL 6.25 MG TAB PO SCH ×2 (07:28→22:05)
[2017-07-27] MEDS: ASPIRIN 81 MG CHEW TAB PO SCH (07:28)
[2017-07-27] MEDS: hydrALAZINE HCL 25 MG TAB PO SCH ×2 (07:28→22:05)
[2017-07-27] MEDS: FAMOTIDINE 20 MG TAB PO SCH ×2 (07:28→22:05)
[2017-07-27] MEDS: DOCUSATE SODIUM 50 MG/SENNA 8.6 MG TAB PO SCH ×2 (07:32→22:05)
--- NOTE | 2017-07-27 07:44 | PD.VS.PN ---
Subjective Subjective/Hospital Course Pt adm with aTBAD. feels better this morning but no CP/BP ambulating in hallway transitioned to po antihypertensives demario po Objective Vitals/I&O Date Time Temp Pulse Resp B/P (MAP) Pulse Ox O2 Delivery O2 Flow Rate FiO2 07/27/17 04:30 98.9 92 18 163/83 (109) 92 07/27/17 04:00 07/27/17 04:00 94 Room Air 07/27/17 03:20 91 07/27/17 00:33 18 07/26/17 23:00 99.0 88 18 155/98 (117) 93 07/26/17 23:00 91 07/26/17 21:05 93 21 07/26/17 19:11 99.2 75 18 105/67 (80) 96 07/26/17 19:11 96 Room Air 07/26/17 19:00 72 07/26/17 15:00 98.3 69 20 107/68 (81) 98 07/26/17 15:00 69 07/26/17 11:16 62 07/26/17 11:06 98.4 62 20 112/73 (86) 97 07/27/17 07/27/17 07/27/17 07:00 15:00 23:00 Intake Total 420 ml Output Total 620 ml Balance -200 ml Physical Exam no distress DOWLING no abdominal tenderness Imaging Last 48 hours Impressions Aorta CTA 07/26/17 0000 Signed Impressions: Service Date/Time: Wednesday, July 26, 2017 08:31 - CONCLUSION: 1. Stable Arnie type B aortic dissection. The dissection extends through the left subclavian artery into the axillary artery. It does generate luminal compromise of the left subclavian artery distal to the vertebral artery origin and into the axillary artery secondary to thrombosis of the false channel and compression of the true channel. The component within the descending aorta extends to the diaphragmatic hiatus with complete thrombosis of the false channel. No significant luminal compromise to the true channel. 2. 4.5 cm fusiform dilatation of the mid tubular portion of the ascending aorta. 3. Small bilateral pleural effusions with associated atelectasis. Maxx Lopez Jr., MD Assessment and Plan Assessment: (1) Aortic dissection Plan Acute type B (or IIIa) dissection without malperfusion or rupture. 1. stable on CT 2. Needs better BP control; added hydralazine on top of labetolol; goal SBP <120 3. Reg diet, OOB ad leigh 4. Anticipate d/c tomorrow if BP improved and RTC 4 weeks with CTA 5. Needs PCP f/u for aggressive BP mgmt Hari Jeffers MD FACS RPVI tube man [facility] - Heart and Vascular Surgery at [facility] [phone] Hari Jeffers MD Jul 27, 2017 07:44
--- NOTE | 2017-07-27 09:09 | HHI.PR ---
Subjective Remarks no cp or sob Objective Vitals heart reg lung cta abd s/nt ext no edema Vital Signs Date Time Temp Pulse Resp B/P (MAP) Pulse Ox O2 Delivery O2 Flow Rate FiO2 07/27/17 08:50 84 18 139/74 (95) 93 07/27/17 08:05 156/88 (110) 07/27/17 08:00 86 07/27/17 07:15 94 Room Air 07/27/17 07:15 97.4 92 20 166/94 (118) 94 07/27/17 07:00 86 07/27/17 04:30 98.9 92 18 163/83 (109) 92 07/27/17 04:00 07/27/17 04:00 94 Room Air 07/27/17 03:20 91 07/27/17 00:33 18 07/26/17 23:00 99.0 88 18 155/98 (117) 93 07/26/17 23:00 91 07/26/17 21:05 93 21 07/26/17 19:11 99.2 75 18 105/67 (80) 96 07/26/17 19:11 96 Room Air 07/26/17 19:00 72 07/26/17 15:00 98.3 69 20 107/68 (81) 98 07/26/17 15:00 69 07/26/17 11:16 62 07/26/17 11:06 98.4 62 20 112/73 (86) 97 Result Diagram: 07/26/17 0357 07/26/17 0357 A/P Problem List: (1) Aortic dissection ICD Codes: I71.00 - Dissection of unspecified site of aorta Status: Acute Plan: 1. aortic dissection type b 2. hypertension Vascular following BP meds adjusted this AM for better control If bp controlled then d/c home tomorrow morning. (2) HTN (hypertension) ICD Codes: I10 - Essential (primary) hypertension Status: Acute Roney Ashraf MD Jul 27, 2017 09:09
[2017-07-27] MEDS: ENOXAPARIN SODIUM 40 MG/0.4 ML SYRINGE SQ SCH (12:27)
[2017-07-27] MEDS: PRAVASTATIN SOD 20 MG TAB PO SCH ×2 (21:00→22:05)
[2017-07-27] MEDS: CYCLOBENZAPRINE HCL 10 MG TAB PO SCH (22:05)
[2017-07-27] MEDS: ATORVASTATIN 40 MG TAB PO SCH (22:05)
[2017-07-28] VITALS (11 sets, daily range): BP systolic 104–149; BP diastolic 63–76; PULSE 74–92; RESP 14–16; TEMP 98.1–99.5; O2SAT 94–96
[2017-07-28] MEDS: LABETALOL HCL 300 MG TAB PO SCH (05:11)
--- NOTE | 2017-07-28 07:40 | PD.VS.PN ---
Subjective Subjective/Hospital Course Pt adm with aTBAD. pain free ambulating BP controlled Objective Vitals/I&O Date Time Temp Pulse Resp B/P (MAP) Pulse Ox O2 Delivery O2 Flow Rate FiO2 07/28/17 07:33 95 21 07/28/17 06:00 79 07/28/17 05:00 74 07/28/17 04:00 78 07/28/17 03:00 99.5 75 14 149/76 (100) 96 07/28/17 03:00 75 07/28/17 02:00 76 07/28/17 01:00 82 07/28/17 00:00 86 07/27/17 23:00 83 07/27/17 23:00 100.2 83 12 137/82 (100) 96 07/27/17 22:00 80 07/27/17 21:00 78 07/27/17 20:00 82 07/27/17 19:00 98.7 89 12 126/70 (88) 93 07/27/17 19:00 89 07/27/17 19:00 93 Room Air 07/27/17 18:00 96 07/27/17 17:00 78 07/27/17 16:00 80 07/27/17 15:00 97.6 89 22 149/74 (99) 96 07/27/17 15:00 83 07/27/17 14:00 80 07/27/17 13:00 84 07/27/17 12:23 82 18 141/87 (105) 96 07/27/17 12:00 81 07/27/17 11:22 83 18 141/78 (99) 95 07/27/17 11:00 77 07/27/17 08:50 84 18 139/74 (95) 93 07/27/17 08:05 156/88 (110) 07/27/17 08:00 86 07/28/17 07/28/17 07/28/17 07:00 15:00 23:00 Intake Total 240 ml Output Total 1100 ml Balance -860 ml Physical Exam no distress palpable pulses no abdominal tenderness Assessment and Plan Assessment: (1) Aortic dissection Status: Acute Plan Acute type B (or IIIa) dissection without malperfusion or rupture. 1. stable on CT 2. D/C today 3. Discussed with patient the need to see PCP early this week Hari Jeffers MD FACS RPVI pet store merchandiser [facility] - Heart and Vascular Surgery at [facility] [phone] Hari Jeffers MD Jul 28, 2017 07:40
--- NOTE | 2017-07-28 07:44 | PD.VS.DC ---
Discharge Summary Admission Date: Jul 24, 2017 at 11:05 Discharge Date: Jul 28, 2017 Admission Diagnosis: Discharge Diagnosis: (1) Aortic dissection ICD Codes: I71.00 - Dissection of unspecified site of aorta Status: Acute Brief History from admission Mr. Park is a 62/M who has a PMH of Ulcerative colitis, hyperlipidemia and chronic lower back pain Pt reported he arrived via EMS due to sudden onset "chest pressure" that worsened this am Pt states his pain started last night (Left sided neck/shoulder to torso) but resolved and reoccurred this am while traveling to work this am Procedure(s): none Significant Findings Laboratory Tests Test 07/26/17 03:57 Red Blood Count 3.85 MIL/MM3 (4.50-5.90) Hemoglobin 11.7 GM/DL (13.0-17.0) Hematocrit 35.2 % (39.0-51.0) Random Glucose 141 MG/DL (74-106) Calcium Level 7.9 MG/DL (8.5-10.1) Chloride Level 113 MEQ/L (98-107) Carbon Dioxide Level 19.8 MEQ/L (21.0-32.0) Hospital Course: The patient was admitted to the CVICU and kept on a labetolol gtt for SBP <110. His chest/back pain abated and a repeat CTA 48h into hospital course was unchanged. Transitioned to po meds. At the time of discharge, he had no abdominal, chest or back pain, was demario reg diet and ambulating without difficulty. Discharge Condition: Good Discharge Disposition: Discharge Home Discharge Instructions: Call with any chest or back pain. Any questions or concerns: Call [facility] Heart and Vascular Surgery at [email or web address] [phone] Our office will call you Saturday morning to set up f/u in 1 month with a repeat CTA. Also, please call your PCP Saturday morning to see him this week for BP control with a goal SBP 120. Hari Jeffers MD Jul 28, 2017 07:44
[2017-07-28] MEDS: FAMOTIDINE 20 MG TAB PO SCH (09:20)
[2017-07-28] MEDS: hydrALAZINE HCL 25 MG TAB PO SCH (09:20)
[2017-07-28] MEDS: THIAMINE HCL 100 MG TAB PO SCH (09:20)
[2017-07-28] MEDS: CARVEDILOL 6.25 MG TAB PO SCH (09:20)
[2017-07-28] MEDS: ASPIRIN 81 MG CHEW TAB PO SCH (09:20)
[2017-07-28] MEDS: DOCUSATE SODIUM 50 MG/SENNA 8.6 MG TAB PO SCH (09:20)
--- NOTE | 2017-07-28 09:30 | HHI.PR ---
Subjective Remarks stopped by to see pt. says he is discharged per vascular Objective Vitals in chair nad Vital Signs Date Time Temp Pulse Resp B/P (MAP) Pulse Ox O2 Delivery O2 Flow Rate FiO2 07/28/17 09:00 85 07/28/17 08:00 92 07/28/17 07:33 95 21 07/28/17 07:00 91 07/28/17 07:00 98.1 77 16 104/63 (77) 94 07/28/17 07:00 94 Room Air 07/28/17 06:00 79 07/28/17 05:00 74 07/28/17 04:00 78 07/28/17 03:00 99.5 75 14 149/76 (100) 96 07/28/17 03:00 75 07/28/17 02:00 76 07/28/17 01:00 82 07/28/17 00:00 86 07/27/17 23:00 83 07/27/17 23:00 100.2 83 12 137/82 (100) 96 07/27/17 22:00 80 07/27/17 21:00 78 07/27/17 20:00 82 07/27/17 19:00 98.7 89 12 126/70 (88) 93 07/27/17 19:00 89 07/27/17 19:00 93 Room Air 07/27/17 18:00 96 07/27/17 17:00 78 07/27/17 16:00 80 07/27/17 15:00 97.6 89 22 149/74 (99) 96 07/27/17 15:00 83 07/27/17 14:00 80 07/27/17 13:00 84 07/27/17 12:23 82 18 141/87 (105) 96 07/27/17 12:00 81 07/27/17 11:22 83 18 141/78 (99) 95 07/27/17 11:00 77 Result Diagram: 07/26/177 07/26/17 035 A/P Problem List: (1) Aortic dissection ICD Codes: I71.00 - Dissection of unspecified site of aorta Status: Acute Plan: 1. aortic dissection type b 2. hypertension nursing and pt report he is being dc'ed today per Vascular and his bp meds are written per vascular. f/u pcp. (2) HTN (hypertension) ICD Codes: I10 - Essential (primary) hypertension Status: Acute Roney Ashraf MD Jul 28, 2017 09:29
== END 2017-07-28 09:45 | disposition home or self-care (01) | DRG 300 ==
LOC: NEPE 08:05 → NEDA 11:05 → HCVI 12:49 → HCPC 07-27 00:30
PROVIDERS: ADMIT Surgery; ATTEND Surgery
DX: I71.01 Dissection of thoracic aorta (principal); I16.1 Hypertensive emergency; I10 Essential (primary) hypertension; E78.5 Hyperlipidemia, unspecified; G89.29 Other chronic pain; K57.30 Diverticulosis of large intestine without perforation or abscess without bleeding; M54.5 Low back pain; Z87.891 Personal history of nicotine dependence; Z85.46 Personal history of malignant neoplasm of prostate; Z92.3 Personal history of irradiation
CPT/HCPCS: 71045; 71275; 74174; 80048; 80053; 83605; 83690; 83735; 84484; 85025; 85027; 85610; 85730; 93005; 96360; J1650; J2270; J2405; J3480; J7030; J7040; J7050; Q9967